=== PATIENT | female | born 1990 | race Native Hawaiian/Other Pacific Islander ===

== ENCOUNTER 2017-06-15 21:45 | Inpatient (IN) | payer BC ==
[2017-06-15] MEDS ORDERED: Sodium Chloride 0.9% 1,000 ML IV STA (22:13)
[2017-06-15] MEDS ORDERED: Iohexol 240 (50 ml) PO STA (22:13)
--- NOTE | 2017-06-15 22:46 | ED PDOC ---
HPI: Abdomen Time Seen by Provider: 06/15/17 21:55 Chief Complaint (Nursing): Abdominal Pain Chief Complaint (Provider): Abdominal Pain History Per: Patient History/Exam Limitations: no limitations Onset/Duration Of Symptoms: Hrs (x24) Current Symptoms Are (Timing): Still Present Additional Complaint(s): Gordon Higginbotham is a 27 year old [place] female with a history of ovarian cyst that required oophorectomy and tubectomy, as well appendectomy that presents to the ED with a chief complaint of sharp, intermittent epigastric abdominal pain that she has been experiencing for the past 24 hours. Patient denies any associated vomiting, diarrhea, urinary symptoms, or vaginal discharge. Past Medical History Reviewed: Historical Data, Nursing Documentation, Vital Signs Vital Signs: Last Vital Signs Temp 97.7 F 06/16/17 03:59 Pulse 79 06/16/17 03:59 Resp 19 06/16/17 03:59 BP 109/65 06/16/17 03:59 Pulse Ox 96 06/16/17 03:59 - Medical History Other PMH: Ovarian cyst - Surgical History Surgical History: Appendectomy Other surgeries: oophorectomy and tubectomy for ovarian cyst - Family History Family History: States: Unknown Family Hx - Home Medications Home Medications: Ambulatory Orders Medication Instructions Recorded No Known Home Med 06/16/17 - Allergies Allergies/Adverse Reactions: Allergies Allergy/AdvReac Type Severity Reaction Status Date / Time No Known Allergies Allergy Verified 06/15/17 21:48 Review of Systems Gastrointestinal: Positive for: Abdominal Pain Physical Exam - Reviewed Nursing Documentation Reviewed: Yes Vital Signs Reviewed: Yes - Physical Exam Appears: Positive for: Non-toxic, Uncomfortable Head Exam: Positive for: ATRAUMATIC, NORMOCEPHALIC Skin: Positive for: Normal Color, Warm Eye Exam: Positive for: EOMI, Normal appearance, PERRL Cardiovascular/Chest: Positive for: Regular Rate, Rhythm. Negative for: Murmur Respiratory: Positive for: Normal Breath Sounds. Negative for: Wheezing Gastrointestinal/Abdominal: Positive for: Tenderness (Right mid-abdominal tenderness to palpation). Negative for: Normal Exam Neurologic/Psych: Positive for: Alert, Oriented. Negative for: Motor/Sensory Deficits - Laboratory Results Result Diagrams: 06/15/17 23:15 06/16/17 00:10 - ECG O2 Sat by Pulse Oximetry: 99 (RA) Pulse Ox Interpretation: Normal Medical Decision Making Medical Decision Making: Impression: 27 year old female with epigastric and right sided abdominal pain Plan: * US Abdomen * US Transvaginal * CMP * CBC * PTT * PTT * Lipase * Iohexol 50 mL PO * NaCl 1000 mLs at 1000 mLs/hr * Zofran 4 mg IV * Morphine 4 mg IV * Reevaluation 06/15/2017 23:50 US Abdomen, Right Upper Quadrant FINDINGS: Liver: Unremarkable as visualized. No mass. No intrahepatic bile duct dilation. Gallbladder: Unremarkable as visualized. No gallstones. Common bile duct: No dilation. Pancreas: Unremarkable as visualized. Right kidney: Unremarkable as visualized. No stones. No solid mass. No hydronephrosis. IMPRESSION: No acute sonographic abnormality US Pelvis, Transvaginal FINDINGS: Uterus/cervix: Measured at 6.2 x 2.5 x 3.8 cm. Normal endometrial stripe thickness. Trace fluid in region of cervix. No myometrial mass. Right ovary: Unremarkable as visualized. No mass. Normal blood flow. Left ovary: Unremarkable as visualized. No mass. Normal blood flow. IMPRESSION: No acute sonographic abnormality. Scribe Attestation: Documented by Lala Rubi, acting as a scribe for Uri Castaneda MD. Provider Scribe Attestation: All medical record entries made by the Scribe were at my direction and personally dictated by me. I have reviewed the chart and agree that the record accurately reflects my personal performance of the history, physical exam, medical decision making, and the department course for this patient. I have also personally directed, reviewed, and agree with the discharge instructions and disposition. ED OBSERVATION - Progress Note Progress Note: 06/16/17 00:40 Patient placed on ED observation because of extensive time of work up. 06/16/17 02:00 No changes. Patient resting comfortably. Vitals stable. 06/16/17 02:30 CT Abdomen with IV contrast FINDINGS: Lower thorax: The visualized portions of the lung bases are normal. ABDOMEN: Liver: There are no focal liver lesions present. Gallbladder and bile ducts: The gallbladder is normal. There is no evidence of biliary ductal dilation. No calcified stones. Pancreas: The pancreas is normal. No ductal dilation. Spleen: The spleen is normal. Adrenals: The adrenal glands are normal. Kidneys and ureters: The kidneys are normal. No hydronephrosis. Stomach and bowel: The small bowel is filled with fecal contents and dilated up to 3.4 cm with abrupt collapse in the mid pelvis consistent with high-grade small bowel obstruction. The stomach is normal. The colon is normal. No mucosal thickening. Appendix: No findings to suggest acute appendicitis. PELVIS: Bladder: The bladder is normal. Reproductive: The uterus is normal. ABDOMEN and PELVIS: Intraperitoneal space: There is a small amount of free pelvic fluid present. There is a trace amount of LEFT upper quadrant ascites. No free air. Bones/joints: No acute fracture. No dislocation. Soft tissues: Normal. Vasculature: Normal. No abdominal aortic aneurysm. Lymph nodes: Normal. No enlarged lymph nodes. IMPRESSION: The small bowel is filled with fecal contents and dilated up to 3.4 cm with abrupt collapse in the mid pelvis consistent with high-grade small bowel obstruction. 06/16/17 02:54 Patient with small bowel obstruction. Spoke with Dr. Josue surgical scheduler regarding patient. She will speak with Dr. Saha about admitting patient. 06/16/17 03:30 No changes. Patient resting comfortably. Vitals stable. Scribe Attestation: Documented by Marcello Tijerina acting as a scribe for Uri Castaneda MD. Scribmichael Attestation: All medical record entries made by the Scribe were at my direction and personally dictated by me. I have reviewed the chart and agree that the record accurately reflects my personal performance of the history, physical exam, medical decision making, and the department course for this patient. I have also personally directed, reviewed, and agree with the discharge instructions and disposition. Disposition - Clinical Impression Clinical Impression: Small bowel obstruction - Patient ED Disposition Is Patient to be Admitted: Yes Discussed With DrGen: Melanie Negron Counseled Patient/Family Regarding: Studies Performed, Diagnosis - Disposition Disposition Time: 02:40 Condition: FAIR - Pt Status Changed To: Hospital Disposition Of: Inpatient - Admit Certification Admit to Inpatient:: After my assessment, the patient will require hospitalization for at least two midnights. This is because of the severity of symptoms shown, intensity of services needed, and/or the medical risk in this patient being treated as an outpatient.
[2017-06-15 23:05] LABS: RBC URINE 2 /hpf (0-3); URINE BACTERIA RARE (<OCC); URINE BILIRUBIN NEGATIVE (NEGATIVE); URINE BLOOD NEGATIVE (NEGATIVE); URINE COLOR YELLOW (YELLOW); URINE GLUCOSE (UA) NEG (Normal); URINE KETONE NEGATIVE (NEGATIVE); URINE LEUKOCYTE ESTERASE SMALL Leu/uL (Negative); URINE PROTEIN NEGATIVE (NEGATIVE); URINE UROBILINOGEN 0.2-1.0 mg/dL (0.2-1.0); WBC URINE 8 /hpf (0-5)
[2017-06-15] MEDS ORDERED: Iohexol 240 (50 ml) ONE (23:30)
[2017-06-15 23:52] LABS: BASO # 0.1 K/uL (0.0-0.2); BASO % 0.4 % (0.0-2.0); EOS # 0.1 K/uL (0.0-0.7); HEMATOCRIT 43.8 % (34.0-47.0); LYMPH # 1.2 K/uL (1.0-4.3); LYMPH % 9.9 % (20.0-40.0); MEAN CELL VOLUME 91.4 fl (81.0-99.0); MEAN CORPUSCULAR HEMOGLOBIN 29.8 pg (27.0-31.0); MEAN CORPUSCULAR HGB CONC 32.7 g/dL (33.0-37.0); MEAN PLATELET VOLUME 8.1 fl (7.2-11.7); MONO # 0.5 K/uL (0.0-0.8); MONO % 4.4 % (0.0-10.0); NEUT # 10.4 K/uL (1.8-7.0); NEUT % 84.3 % (50.0-75.0); PLATELET COUNT 252 K/uL (130-400); RED CELL DISTRIBUTION WIDTH 13.9 % (11.5-14.5); WHITE BLOOD COUNT 12.4 K/uL (4.8-10.8)
[2017-06-16 00:05] LABS: PARTIAL THROMBOPLASTIN TIME 29.7 Seconds (25.6-37.1)
[2017-06-16 01:09] LABS: ALB/GLOB RATIO 1.4 (1.0-2.1); ALKALINE PHOSPHATASE 45 U/L (38-126); ALT/SGPT 24 U/L (9-52); AST/SGOT 20 U/L (14-36); BILIRUBIN,TOTAL 0.7 mg/dl (0.2-1.3); BLOOD UREA NITROGEN 10 mg/dl (7-17); CALCIUM 9.5 mg/dL (8.4-10.2); CARBON DIOXIDE 23 mmol/L (22-30); CHLORIDE 103 mmol/L (98-107); GFR AFRICAN-AMERICAN > 60; GLUCOSE,RANDOM 115 mg/dL (65-105); LIPASE 73 U/L (23-300); POTASSIUM 4.4 MMOL/L (3.6-5.0); SODIUM 141 mmol/l (132-148); TOTAL PROTEIN 7.7 G/DL (6.3-8.2)
[2017-06-16 01:16] LABS: BASOPHIL 1 % (0-2); EOSINOPHIL 1 % (0-7); NEUTROPHIL 81 % (42-75); TOTAL CELLS COUNTED 100
[2017-06-16] MEDS ORDERED: Sodium Chloride 0.9% 50 ML IV ONE (01:20)
[2017-06-16] MEDS ORDERED: Iohexol 300 100 ML IJ ONE (01:20)
--- NOTE | 2017-06-16 04:31 | CP.PCM.HP ---
History of Present Illness - History of Present Illness History of Present Illness: General Surgery Dr. Saha 27 y/o F w/ PMHx of R ovarian cyst s/p open R salpingoophorectomy and appendectomy presents to the ED c/o abd pain x24hrs. Pt states discomfort began Monday evening w/ sensation of indigestion. Pt took Tums and went to bed. Sensation worsened throughout prompting pt to come to the ED. Pt admits pain worse in epigastric region. Pain is non-radiating and comes in waves. Pt has never before had this pain. Pt reports NBNB vomiting x1 in the ED. Pt reports continued nausea. Pt states last BM was Monday. Pt unsure if recent diarrhea or constipation. Pt denies F/C, SOB, CP, melena, or hematochezia. PMHx: see above Meds: reviewed in chart NKDA PSHx: open R salpingoophorectomy, appendectomy 2013 SHx: occasional EtOH use. denies tobacco, drug use FHx: HTN Present on Admission - Present on Admission Any Indicators Present on Admission: No Review of Systems - Review of Systems All systems: reviewed and no additional remarkable complaints except (see HPI) Past Patient History - Past Social History Smoking Status: Never Smoked - MUSCULOSKELETAL/RHEUMATOLOGICAL Hx Falls: No - GENITOURINARY/GYNECOLOGICAL Other/Comment: Ovarian cysts - PSYCHIATRIC Hx Substance Use: No - SURGICAL HISTORY Hx Appendectomy: Yes - ANESTHESIA Hx Anesthesia: Yes Hx Anesthesia Reactions: No Meds Allergies/Adverse Reactions: Allergies Allergy/AdvReac Type Severity Reaction Status Date / Time No Known Allergies Allergy Verified 06/15/17 21:48 Physical Exam - Constitutional Appears: Non-toxic, No Acute Distress - Head Exam Head Exam: NORMAL INSPECTION - Eye Exam Eye Exam: Normal appearance - ENT Exam ENT Exam: Mucous Membranes Moist - Respiratory Exam Respiratory Exam: NORMAL BREATHING PATTERN. absent: Accessory Muscle Use, Respiratory Distress - Cardiovascular Exam Cardiovascular Exam: REGULAR RHYTHM. absent: Bradycardia, Tachycardia - GI/Abdominal Exam GI & Abdominal Exam: Soft, Tenderness (minimal epigastric TTP). absent: Distended, Guarding, Rebound, Rigid Additional comments: well-healed midline scar present - Extremities Exam Extremities exam: Positive for: normal inspection - Neurological Exam Neurological exam: Alert, Oriented x3 - Psychiatric Exam Psychiatric exam: Normal Affect - Skin Skin Exam: Dry, Intact, Normal Color, Warm Results - Vital Signs Recent Vital Signs: Last Vital Signs Temp 97.7 F 06/16/17 03:59 Pulse 79 06/16/17 03:59 Resp 19 06/16/17 03:59 BP 109/65 06/16/17 03:59 Pulse Ox 96 06/16/17 03:59 - Labs Result Diagrams: 06/15/17 23:15 06/16/17 00:10 Labs: Laboratory Results - last 24 hr 06/15/17 06/15/17 06/15/17 22:07 23:15 23:15 WBC 12.4 H RBC 4.79 Hgb 14.3 Hct 43.8 MCV 91.4 MCH 29.8 MCHC 32.7 L RDW 13.9 Plt Count 252 MPV 8.1 Neut % (Auto) 84.3 H Lymph % (Auto) 9.9 L [place] % (Auto) 4.4 Eos % (Auto) 1.0 Baso % (Auto) 0.4 Neut # 10.4 H Lymph # 1.2 [place] # 0.5 Eos # 0.1 Baso # 0.1 Neutrophils % (Manual) 81 H Lymphocytes % (Manual) 12 L Monocytes % (Manual) 5 Eosinophils % (Manual) 1 Basophils % (Manual) 1 Platelet Estimate Normal PT 11.3 INR 1.1 APTT 29.7 Sodium Potassium Chloride Carbon Dioxide Anion Gap BUN Creatinine Est GFR ( Amer) Est GFR (Non-Af Amer) Random Glucose Calcium Total Bilirubin AST ALT Alkaline Phosphatase Total Protein Albumin Globulin Albumin/Globulin Ratio Lipase Urine Color Yellow Urine Clarity Cloudy Urine pH 7.0 Ur Specific [place] 1.013 Urine Protein Negative Urine Glucose (UA) Neg Urine Ketones Negative Urine Blood Negative Urine Nitrate Negative Urine Bilirubin Negative Urine Urobilinogen 0.2-1.0 Ur Leukocyte Esterase Small Urine RBC (Auto) 2 Urine Microscopic WBC 8 H Ur Squamous Epith Cells 6 H Urine Bacteria Rare Urine Yeast (Budding) Many H 06/16/17 00:10 WBC RBC Hgb Hct MCV MCH MCHC RDW Plt Count MPV Neut % (Auto) Lymph % (Auto) [place] % (Auto) Eos % (Auto) Baso % (Auto) Neut # Lymph # [place] # Eos # Baso # Neutrophils % (Manual) Lymphocytes % (Manual) Monocytes % (Manual) Eosinophils % (Manual) Basophils % (Manual) Platelet Estimate PT INR APTT Sodium 141 Potassium 4.4 Chloride 103 Carbon Dioxide 23 Anion Gap 20 BUN 10 Creatinine 0.5 L Est GFR ( Amer) > 60 Est GFR (Non-Af Amer) > 60 Random Glucose 115 H Calcium 9.5 Total Bilirubin 0.7 AST 20 ALT 24 Alkaline Phosphatase 45 Total Protein 7.7 Albumin 4.4 Globulin 3.3 Albumin/Globulin Ratio 1.4 Lipase 73 Urine Color Urine Clarity Urine pH Ur Specific [place] Urine Protein Urine Glucose (UA) Urine Ketones Urine Blood Urine Nitrate Urine Bilirubin Urine Urobilinogen Ur Leukocyte Esterase Urine RBC (Auto) Urine Microscopic WBC Ur Squamous Epith Cells Urine Bacteria Urine Yeast (Budding) - Imaging and Cardiology CT scan - abdomen Status: Image reviewed by me, Report reviewed by me US - abdomen Status: Report reviewed by me Assessment & Plan - Assessment and Plan (Free Text) Assessment: 27 y/o F w/ abd pain likely 2/2 mechanical SBO - NPO, IVF - pain management - anti-emetic - fecalization of colon and small bowel on imaging - Dulcolax suppository - NGT if vomiting develops - f/u Procalcitonin Will discuss w/ Dr. Yifan Negron DO PGY2
[2017-06-16] MEDS: Sodium Chloride 0.9% 1,000 ML IV SCH ×2 (04:59→18:59)
[2017-06-16 06:19] LABS: BASO % 0.5 % (0.0-2.0); EOS % 0.3 % (0.0-4.0); HEMATOCRIT 38.7 % (34.0-47.0); LYMPH # 0.7 K/uL (1.0-4.3); LYMPH % 8.1 % (20.0-40.0); MEAN CELL VOLUME 91.4 fl (81.0-99.0); MEAN CORPUSCULAR HEMOGLOBIN 30.1 pg (27.0-31.0); MEAN CORPUSCULAR HGB CONC 32.9 g/dL (33.0-37.0); MEAN PLATELET VOLUME 7.9 fl (7.2-11.7); MONO # 0.3 K/uL (0.0-0.8); MONO % 3.9 % (0.0-10.0); NEUT # 7.2 K/uL (1.8-7.0); NEUT % 87.2 % (50.0-75.0); RED CELL DISTRIBUTION WIDTH 13.4 % (11.5-14.5); WHITE BLOOD COUNT 8.3 K/uL (4.8-10.8)
[2017-06-16 06:33] LABS: ALB/GLOB RATIO 1.3 (1.0-2.1); ALKALINE PHOSPHATASE 39 U/L (38-126); ALT/SGPT 21 U/L (9-52); AST/SGOT 18 U/L (14-36); BILIRUBIN,TOTAL 0.7 mg/dl (0.2-1.3); BLOOD UREA NITROGEN 8 mg/dl (7-17); CALCIUM 9.3 mg/dL (8.4-10.2); CARBON DIOXIDE 25 mmol/L (22-30); CHLORIDE 105 mmol/L (98-107); GFR AFRICAN-AMERICAN > 60; GLUCOSE,RANDOM 118 mg/dL (65-105); SODIUM 143 mmol/l (132-148); TOTAL PROTEIN 7.2 G/DL (6.3-8.2)
--- NOTE | 2017-06-16 10:12 | CT ---
PROCEDURE: CT Abdomen and Pelvis with contrast HISTORY: abd pain COMPARISON: Non abdomen and pelvic ultrasound examinations both dated 06/15/2017. TECHNIQUE: Contrast dose: Omnipaque 300, 90 cc. Radiation dose: Total exam DLP = 329.94 mGy-cm. This CT exam was performed using one or more of the following dose reduction techniques: Automated exposure control, adjustment of the mA and/or kV according to patient size, and/or use of iterative reconstruction technique. FINDINGS: LOWER THORAX: Unremarkable. LIVER: Diminished attenuation is appreciated throughout liver compatible with diffuse fatty infiltration. No discrete mass seen throughout the liver or gross intrahepatic biliary dilatation. GALLBLADDER AND BILE DUCTS: Unremarkable. PANCREAS: Unremarkable. No gross lesion or ductal dilatation. SPLEEN: Unremarkable. ADRENALS: Unremarkable. No mass. KIDNEYS AND URETERS: Unremarkable. No hydronephrosis. No solid mass. VASCULATURE: Unremarkable. No aortic aneurysm. BOWEL: Dilated small bowel is appreciated throughout the abdomen with collapsed distal small bowel segments appreciated. A loop of small bowel in the right lower quadrant measures up to 4.0 cm. Retained fecal material is seen in within much of the small bowel lumen and there is a sharp transition from dilated to collapsed small bowel in the lower abdomen just above the level of pelvis in images 46, 47 and 48 of series 2 which is felt to be the likely transition point, possibly an internal hernia. Further clinical correlation is advised and surgical consultation is recommended. Muscle large bowel is collapsed however moderate amount retained fecal material seen the ascending colon. There is no large-bowel obstruction appreciated. APPENDIX: No definite CT pattern suggest appendicitis at this time are the appendix is not identified. PERITONEUM: Limited mesenteric edema is appreciate the inferior abdomen predominantly. No free fluid. No free air. LYMPH NODES: Unremarkable. No enlarged lymph nodes. BLADDER: Unremarkable. REPRODUCTIVE: Unremarkable. BONES: No acute fracture. OTHER FINDINGS: None. IMPRESSION: Findings most compatible the high-grade distal small-bowel obstruction with the transition point appears to be at the midline posterior inferior abdomen. Please see discussion above. No free intrarenal gas abscess or ascites however mesenteric reaction seen the inferior abdomen. Diffuse fatty infiltration of liver. Concordant report from [facility], 06/15/2017.
--- NOTE | 2017-06-16 11:32 | RAD ---
HISTORY: SBO COMPARISON: Abdomen and pelvis CT examination 06/16/2017. FINDINGS: BOWEL: Oral contrast identified in the ascending colon indicating incomplete small bowel obstruction. Distended small bowel loops remain at the mid to inferior abdomen filled with retained stool and oral contrast material. No free intrarenal gas is grossly evident. BONES: Normal. OTHER FINDINGS: A distended urinary bladder suggested in the pelvis. IMPRESSION: Findings suggest partial distal small bowel obstruction with oral contrast not identified opacifying the ascending colon. No prominent free intrarenal gas. Clinical correlation and imaging follow-up are advised.
--- NOTE | 2017-06-16 13:18 | US ---
HISTORY: abd pain hx ov cyst COMPARISON: None available. TECHNIQUE: Transvaginal FINDINGS: UTERUS: Measures 6.2 x 2.5 x 3.8 cm. Normal in size and appearance. No fibroid or other mass lesion seen. ENDOMETRIUM: Measures 3 mm in diameter. Unremarkable. CERVIX: No cervical abnormality identified. RIGHT OVARY: Measures 0.6 x 1.2 x 1.4 cm. No solid mass. Normal flow. LEFT OVARY: Measures 1.4 x 2.2 x 3.4 cm. No solid mass. Normal flow. FREE FLUID: There is a small amount of ascites identified. OTHER FINDINGS: None. IMPRESSION: Unremarkable pelvic ultrasound. Trace ascites. Preliminary interpretation of this examination was reported by [facility] at 11:38 p.m. on 06/15/2017. There is concurrence of this report with the preliminary interpretation.
--- NOTE | 2017-06-16 13:24 | US ---
HISTORY: RUQ COMPARISON: None. TECHNIQUE: Sonographic evaluation of the right upper quadrant of the abdomen. FINDINGS: LIVER: Measures 15.0 cm in length. Normal echogenicity of the liver parenchyma. No mass. No intrahepatic bile duct dilatation. GALLBLADDER: Unremarkable. No gallstones. COMMON BILE DUCT: Measures 4 mm. No stones. No dilatation. PANCREAS: Unremarkable as visualized. No mass. No ductal dilatation. RIGHT KIDNEY: Measures cm in length. Normal echogenicity. No calculus, mass, or hydronephrosis. AORTA: No aneurysmal dilatation. IVC: Unremarkable. OTHER FINDINGS: None . IMPRESSION: Unremarkable examination. No evidence of cholelithiasis or cholecystitis. Preliminary interpretation of this examination was reported by [facility] at 11:39 p.m. on 06/15/2017. There is concurrence of this report with the preliminary interpretation.
[2017-06-16 16:22] VITALS: BP 95/53; PULSE 78; RESP 19; TEMP 98.3; O2SAT 95
[2017-06-16] MEDS ORDERED: Pneumococcal 23-Valent Vaccine IM ONE (17:24)
[2017-06-16] MEDS ORDERED: Influenza Vaccine 18yr & older 0.5 ML/45 MCG SYR IM ONE (17:24)
--- NOTE | 2017-06-16 21:21 | CP.PCM.DIS ---
Provider - Provider Date of Admission: 06/16/17 02:41 Attending physician: Tong Saha MD Hospital Course - Lab Results Lab Results: Most Recent Lab Values WBC 8.3 K/uL (4.8-10.8) 06/16/17 05:15 RBC 4.23 Mil/uL (3.80-5.20) 06/16/17 05:15 Hgb 12.7 g/dL (12.0-16.0) 06/16/17 05:15 Hct 38.7 % (34.0-47.0) 06/16/17 05:15 MCV 91.4 fl (81.0-99.0) 06/16/17 05:15 MCH 30.1 pg (27.0-31.0) 06/16/17 05:15 MCHC 32.9 g/dL (33.0-37.0) L 06/16/17 05:15 RDW 13.4 % (11.5-14.5) 06/16/17 05:15 Plt Count 214 K/uL (130-400) 06/16/17 05:15 MPV 7.9 fl (7.2-11.7) 06/16/17 05:15 Neut % (Auto) 87.2 % (50.0-75.0) H 06/16/17 05:15 Lymph % (Auto) 8.1 % (20.0-40.0) L 06/16/17 05:15 [place] % (Auto) 3.9 % (0.0-10.0) 06/16/17 05:15 Eos % (Auto) 0.3 % (0.0-4.0) 06/16/17 05:15 Baso % (Auto) 0.5 % (0.0-2.0) 06/16/17 05:15 Neut # 7.2 K/uL (1.8-7.0) H 06/16/17 05:15 Lymph # 0.7 K/uL (1.0-4.3) L 06/16/17 05:15 [place] # 0.3 K/uL (0.0-0.8) 06/16/17 05:15 Eos # 0.0 K/uL (0.0-0.7) 06/16/17 05:15 Baso # 0.0 K/uL (0.0-0.2) 06/16/17 05:15 Neutrophils % (Manual) 81 % (42-75) H 06/15/17 23:15 Lymphocytes % (Manual) 12 % (20-50) L 06/15/17 23:15 Monocytes % (Manual) 5 % (0-10) 06/15/17 23:15 Eosinophils % (Manual) 1 % (0-7) 06/15/17 23:15 Basophils % (Manual) 1 % (0-2) 06/15/17 23:15 Platelet Estimate Normal (NORMAL) 06/15/17 23:15 PT 11.3 Seconds (9.8-13.1) 06/15/17 23:15 INR 1.1 (0.9-1.2) 06/15/17 23:15 APTT 29.7 Seconds (25.6-37.1) 06/15/17 23:15 Sodium 143 mmol/l (132-148) 06/16/17 05:15 Potassium 4.0 MMOL/L (3.6-5.0) 06/16/17 05:15 Chloride 105 mmol/L (98-107) 06/16/17 05:15 Carbon Dioxide 25 mmol/L (22-30) 06/16/17 05:15 Anion Gap 17 (10-20) 06/16/17 05:15 BUN 8 mg/dl (7-17) 06/16/17 05:15 Creatinine 0.5 mg/dL (0.7-1.2) L 06/16/17 05:15 Est GFR ( Amer) > 60 06/16/17 05:15 Est GFR (Non-Af Amer) > 60 06/16/17 05:15 Random Glucose 118 mg/dL (65-105) H 06/16/17 05:15 Calcium 9.3 mg/dL (8.4-10.2) 06/16/17 05:15 Total Bilirubin 0.7 mg/dl (0.2-1.3) 06/16/17 05:15 AST 18 U/L (14-36) 06/16/17 05:15 ALT 21 U/L (9-52) 06/16/17 05:15 Alkaline Phosphatase 39 U/L (38-126) 06/16/17 05:15 Total Protein 7.2 G/DL (6.3-8.2) 06/16/17 05:15 Albumin 4.1 g/dL (3.5-5.0) 06/16/17 05:15 Globulin 3.1 gm/dL (2.2-3.9) 06/16/17 05:15 Albumin/Globulin Ratio 1.3 (1.0-2.1) 06/16/17 05:15 Lipase 73 U/L (23-300) 06/16/17 00:10 Procalcitonin 0.05 NG/ML (0.19-0.49) L 06/16/17 05:15 Urine Color Yellow (YELLOW) 06/15/17 22:07 Urine Clarity Cloudy (Clear) 06/15/17 22:07 Urine pH 7.0 (5.0-8.0) 06/15/17 22:07 Ur Specific [place] 1.013 (1.003-1.030) 06/15/17 22:07 Urine Protein Negative mg/dL (NEGATIVE) 06/15/17 22:07 Urine Glucose (UA) Neg mg/dL (Normal) 06/15/17 22:07 Urine Ketones Negative mg/dL (NEGATIVE) 06/15/17 22:07 Urine Blood Negative (NEGATIVE) 06/15/17 22:07 Urine Nitrate Negative (NEGATIVE) 06/15/17 22:07 Urine Bilirubin Negative (NEGATIVE) 06/15/17 22:07 Urine Urobilinogen 0.2-1.0 mg/dL (0.2-1.0) 06/15/17 22:07 Ur Leukocyte Esterase Small [place]/uL (Negative) 06/15/17 22:07 Urine RBC (Auto) 2 /hpf (0-3) 06/15/17 22:07 Urine Microscopic WBC 8 /hpf (0-5) H 06/15/17 22:07 Ur Squamous Epith Cells 6 /hpf (0-5) H 06/15/17 22:07 Urine Bacteria Rare (<OCC) 06/15/17 22:07 Urine Yeast (Budding) Many /hpf (NEGATIVE) H 06/15/17 22:07 Discharge Exam - Head Exam Head Exam: ATRAUMATIC, NORMOCEPHALIC Discharge Plan - Follow Up Plan Condition: FAIR Disposition: HOME/ ROUTINE Instructions: Constipation (DC), Acute Nausea and Vomiting (DC), Bowel Obstruction (DC) Additional Instructions: Can be discharged home. Eat slow smaller meals. can eat regular food. Stay well hydrated, drink plenty of fluids. Recommend eating diet rich in fiber. Can take over the counter ducolax if needed. If symptoms pain gets worse with increased nausea and vomiting go the the ER. Follow up with your primary care doctor within two weeks.
== END 2017-06-16 18:30 | disposition home or self-care (01) | DRG 390 ==
LOC: H.ER 21:45 → H.ERHOLD 06-16 02:41 → H.TEL 06-16 03:48
PROVIDERS: ADMIT Surgery; ATTEND Surgery
PROC: 3E0234Z Introduction of Serum, Toxoid and Vaccine into Muscle, Percutaneous Approach (ICD-10-PCS; principal; 2017-06-16)
DX: K56.69 Other intestinal obstruction (principal); I10 Essential (primary) hypertension; Z23 Encounter for immunization; Z90.49 Acquired absence of other specified parts of digestive tract

== ENCOUNTER 2017-11-05 17:41 | Observation (INO) | payer BC ==
[2017-11-05] MEDS ORDERED: Lactated Ringer's 1,000 ML IV STA (20:05)
[2017-11-05] MEDS ORDERED: Morphine 4 MG/ML VIAL IVP STA (20:23)
[2017-11-05] MEDS ORDERED: Sodium Chloride 0.9% 50 ML IV ONE (20:31)
[2017-11-05] MEDS ORDERED: Iohexol 300 100 ML IJ ONE (20:31)
[2017-11-05] MEDS ORDERED: Morphine 4 MG/ML VIAL ONE (20:50)
[2017-11-05 21:19] LABS: BASO % 0.3 % (0.0-2.0); EOS % 0.1 % (0.0-4.0); HEMOGLOBIN 14.1 g/dL (12.0-16.0); LYMPH # 0.5 K/uL (1.0-4.3); LYMPH % 4.8 % (20.0-40.0); MEAN CELL VOLUME 90.9 fl (81.0-99.0); MEAN CORPUSCULAR HEMOGLOBIN 29.7 pg (27.0-31.0); MEAN CORPUSCULAR HGB CONC 32.7 g/dL (33.0-37.0); MEAN PLATELET VOLUME 7.4 fl (7.2-11.7); MONO # 0.3 K/uL (0.0-0.8); MONO % 2.7 % (0.0-10.0); NEUT # 9.3 K/uL (1.8-7.0); NEUT % 92.1 % (50.0-75.0); PLATELET COUNT 256 K/uL (130-400); RBC 4.75 Mil/uL (3.80-5.20); RED CELL DISTRIBUTION WIDTH 13.5 % (11.5-14.5); WHITE BLOOD COUNT 10.1 K/uL (4.8-10.8)
[2017-11-05 21:35] LABS: ALB/GLOB RATIO 1.3 (1.0-2.1); ALBUMIN 4.6 g/dL (3.5-5.0); ALT/SGPT 24 U/L (9-52); AST/SGOT 21 U/L (14-36); BLOOD UREA NITROGEN 15 mg/dl (7-17); CALCIUM 9.6 mg/dL (8.4-10.2); GFR AFRICAN-AMERICAN > 60; GFR NON-AFRICAN AMERICAN > 60; LIPASE 71 U/L (23-300); MAGNESIUM 2.2 MG/DL (1.6-2.3)
[2017-11-05 21:51] LABS: INR 1.1 (0.9-1.2); PARTIAL THROMBOPLASTIN TIME 25.7 Seconds (25.6-37.1); PROTHROMBIN TIME 11.9 Seconds (9.8-13.1)
--- NOTE | 2017-11-05 22:03 | ED PDOC ---
HPI: Abdomen Time Seen by Provider: 11/05/17 19:22 Chief Complaint (Nursing): Abdominal Pain Chief Complaint (Provider): Abdominal Pain History Per: Patient History/Exam Limitations: no limitations Onset/Duration Of Symptoms: Days (x1), Worse Since Outside of [place] travel?: No Current Symptoms Are (Timing): Still Present Location Of Pain/Discomfort: Periumbilical Quality Of Discomfort: "Pain" Associated Symptoms: Chills, Vomiting, Loss Of Appetite. denies: Diarrhea Exacerbating Factors: None Alleviating Factors: None Additional Complaint(s): 27 year old female presenting with worsening periumbilical abdominal pain x1 day. The patient states that the abdominal pain is associated with multiple episodes of non bloody, non bilious vomit. She also notes an inability to tolerate food and fluids and also a loss of appetite and chills. 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 - Family History Family History: States: Unknown Family Hx - Social History Current smoker - smoking cessation education provided: No Ex-Smoker (has not smoked in the last 12 months): No Alcohol: None - Home Medications Home Medications: Ambulatory Orders Medication Instructions Recorded Norgestimate-Ethinyl Estradiol 11/06/17 [Mononessa 28 Tablet] Venlafaxine HCl [Venlafaxine HCl 75 mg PO DAILY 11/06/17 ER] - Allergies Allergies/Adverse Reactions: Allergies Allergy/AdvReac Type Severity Reaction Status Date / Time No Known Allergies Allergy Verified 06/15/17 21:48 Review of Systems ROS Statement: Except As Marked, All Systems Reviewed And Found Negative Gastrointestinal: Positive for: Vomiting, Abdominal Pain, Other (no black/ bloody stools). Negative for: Diarrhea Physical Exam - Physical Exam Appears: Positive for: Non-toxic, Uncomfortable, In Acute Distress (painful distress) Skin: Positive for: Normal Color, Warm, Dry. Negative for: Rash Eye Exam: Positive for: Normal appearance, EOMI, PERRL ENT: Positive for: Other (dry mucous membranes). Negative for: Nasal Congestion , Tonsillar Exudate Neck: Positive for: Normal, Painless ROM, Supple Cardiovascular/Chest: Positive for: Regular Rate, Rhythm. Negative for: Tachycardia Respiratory: Positive for: Normal Breath Sounds. Negative for: Rales, Rhonchi, Wheezing, Respiratory Distress Gastrointestinal/Abdominal: Positive for: Bowel Sounds, Soft, Tenderness (b/l upper quad and periumbilical tenderness.), Other (negative mcburneys point tender ). Negative for: Mass, Guarding, Rebound Back: Positive for: Normal Inspection. Negative for: L CVA Tenderness, R CVA Tenderness Extremity: Positive for: Normal ROM. Negative for: Tenderness, Deformity, Swelling Neurologic/Psych: Positive for: Alert, Oriented - Laboratory Results Result Diagrams: 11/06/17 07:45 11/05/17 21:15 - ECG O2 Sat by Pulse Oximetry: 98 (RA) Pulse Ox Interpretation: Normal Medical Decision Making Medical Decision Makin Initial Impression 27 year old female presenting with abdominal pain Differential: Obstruction, Enteritis, Appendicitis, Dehydration Initial Plan: * CT ABD&PELV * CMP * Lipase * Magnesium * Phosphorous * Upreg * Udip * CBC * Partial Thromboplastin * Prothrombin Time * Dextrose 1000ml IV 100 mls/hr * Lactated ringers 1000mls IV 1000mls/hr * Morphine 4mg IVP * Zofran 8mg IV * Blood Culture * Reevaluation Labs demonstrate no emergently significant abnormalities CT demonstrate SBO DW Dr Negron Surgery resident and Dr Angulo Hospitalist DAVIDSON pt findings and plan of care. Hospitalization for bowel rest, IVF, obs for resolution of obstruction v surgical intervention Documented by Cecilia Willams acting as a scribe for Judith Arvizu MD. All medical record entries made by the Scribe were at my direction and personally dictated by me. I have reviewed the chart and agree that the record accurately reflects my personal performance of the history, physical exam, medical decision making, and the department course for this patient. I have also personally directed, reviewed, and agree with the discharge instructions and disposition. Disposition - Clinical Impression Clinical Impression: Small bowel obstruction Counseled Patient/Family Regarding: Studies Performed, Diagnosis - Disposition Disposition Time: 00:00 Condition: FAIR - Pt Status Changed To: Hospital Disposition Of: Observation - POA Present On Arrival: None
--- NOTE | 2017-11-05 22:35 | CT ---
EXAM: CT Abdomen and Pelvis With Intravenous Contrast CLINICAL HISTORY: 27 years old, female; Pain; Abdominal pain; Generalized; Prior surgery; Surgery date: 6+ months; Surgery type: Appendectomy and rt ovarian jul 2013; Patient HX: Epigastric ruq luq pain. HX sbo; Additional info: Abd pain TECHNIQUE: Axial computed tomography images of the abdomen and pelvis with intravenous contrast. All CT scans at this facility use one or more dose reduction techniques, viz.: automated exposure control; ma/kV adjustment per patient size (including targeted exams where dose is matched to indication; i.e. head); or iterative reconstruction technique. Coronal and sagittal reformatted images were created and reviewed. CONTRAST: 98 mL of OMNIPAQUE administered intravenously. COMPARISON: CT - ABD PELVIS PO IV CONTRAST 2017-06-16 01:31 FINDINGS: Limitations: Motion artifact - mild. Lower thorax: No acute findings. ABDOMEN: Liver: Fatty infiltration. Gallbladder and bile ducts: No calcified stones. No ductal dilation. Pancreas: No ductal dilation. No mass. Spleen: No splenomegaly. Adrenals: No mass. Kidneys and ureters: No mass. Minimal pelvocaliectasis of LEFT kidney. Stomach and bowel: Moderately dilated loops of mid small bowel. Nondistended loops of distal small bowel. Mild stranding/fluid within associated small bowel mesentery. No definite mural thickening. Appendix: Appendectomy. PELVIS: Bladder: Unremarkable. Reproductive: Unremarkable as visualized. ABDOMEN and PELVIS: Intraperitoneal space: Trace free fluid within abdomen. Small free fluid within pelvis. No free air. Bones/joints: No acute fracture. Soft tissues: Unremarkable. Vasculature: Unremarkable. No aneurysm. Lymph nodes: No pathologically enlarged lymph nodes. IMPRESSION: 1. Findings compatible with small bowel obstruction. 2. Incidental/non-acute findings are described above.
[2017-11-05] MEDS: Dextrose 5%/Lactated Ringer's 1,000 ML IV SCH (23:24)
--- NOTE | 2017-11-06 00:08 | CP.PCM.HP ---
History of Present Illness - History of Present Illness History of Present Illness: PMD: Not on staff Chief Complaint: Abdominal duong The patient was seen and examined in the ED HPI: This is a 27 years old female with hx of Extensive abdominal surgery , including Right Oophorectomy, tubectomy and Appendectomy all at the same time time 10 years ago.She also was diagnosed with SBO 05/2017 with conservative treatment. She now comes with 1 day of Sharp, Periumbilical abdominal pain which was continuous, crampy, not relieved with Peptobismul and associated with vomiting. No diarrhea, coughing, Urinary frequency, dysuria, Diarrhea nor fever. PMH: SBO 06/04; Ovarian Cyst PSH: Right Oophorectomy; Right Tubectomy; Appendectomy SH: Never Smoked; No ETOH use; No illegal drug use FH: States: Unknown Family Hx Allergies: NKDA Medication: Denies Present on Admission - Present on Admission Any Indicators Present on Admission: No History of DVT/PE: No History of Uncontrolled Diabetes: No Urinary Catheter: No Decubitus Ulcer Present: No Review of Systems - Constitutional Constitutional: Anorexia, Chills. absent: Fatigue, Fever, Headache, Lethargy - EENT Eyes: absent: Diplopia, Floaters, Requires Corrective Lenses, Sees Flashes Ears: absent: Decreased Hearing, Ear Discharge, Ear Pain, Tinnitus Nose/Mouth/Throat: absent: Epistaxis, Nasal Congestion, Nasal Discharge, Sinus Pain, Sinus Pressure - Cardiovascular Cardiovascular: absent: Chest Pain, Dyspnea, Edema - Respiratory Respiratory: absent: Cough, Dyspnea, Wheezing - Gastrointestinal Gastrointestinal: Abdominal Pain, Nausea, Vomiting. absent: Constipation, Diarrhea - Musculoskeletal Musculoskeletal: absent: Abnormal Gait, Arthralgias, Muscle Weakness, Numbness - Integumentary Integumentary: absent: Pruritus, Rash, Skin Ulcer, Sores, Striae, Swelling - Neurological Neurological: absent: Confusion, Dizziness, Focal Weakness, Weakness - Psychiatric Psychiatric: absent: Anxiety, Depression, Panic Attacks - Endocrine Endocrine: absent: Palpitations, Polydipsia, Polyphagia, Polyuria - Hematologic/Lymphatic Hematologic: absent: Easy Bleeding, Easy Bruising Past Patient History - Past Medical History & Family History Past Medical History?: Yes - Past Social History Smoking Status: Never Smoked Chewing Tobacco Use: No Cigar Use: No Alcohol: None Drugs: Denies Home Situation {Lives}: With Family - CARDIAC Hx Cardiac Disorders: No - PULMONARY Hx Respiratory Disorders: No - NEUROLOGICAL Hx Neurological Disorder: No - HEENT Hx HEENT Problems: No - RENAL Hx Chronic Kidney Disease: No - ENDOCRINE/METABOLIC Hx Endocrine Disorders: No - HEMATOLOGICAL/ONCOLOGICAL Hx Blood Disorders: No - INTEGUMENTARY Hx Dermatological Problems: No - MUSCULOSKELETAL/RHEUMATOLOGICAL Hx Musculoskeletal Disorders: No Hx Falls: No - GASTROINTESTINAL Hx Gastrointestinal Disorders: No - GENITOURINARY/GYNECOLOGICAL Hx Genitourinary Disorders: No Other/Comment: Ovarian cysts - PSYCHIATRIC Hx Psychophysiologic Disorder: No Hx Substance Use: No - SURGICAL HISTORY Hx Appendectomy: Yes Other/Comment: Right Oophorectomy and tubectomy - ANESTHESIA Hx Anesthesia: Yes Hx Anesthesia Reactions: No Meds Allergies/Adverse Reactions: Allergies Allergy/AdvReac Type Severity Reaction Status Date / Time No Known Allergies Allergy Verified 06/15/17 21:48 Physical Exam - Constitutional Appears: No Acute Distress - Head Exam Head Exam: ATRAUMATIC, NORMAL INSPECTION, NORMOCEPHALIC - Eye Exam Eye Exam: EOMI, Normal appearance Pupil Exam: NORMAL ACCOMODATION, PERRL - ENT Exam ENT Exam: Mucous Membranes Moist, Normal Exam, Normal External Ear Exam - Neck Exam Neck exam: Positive for: Full Rom, Normal Inspection. Negative for: Lymphadenopathy, Tenderness - Respiratory Exam Respiratory Exam: Clear to Auscultation Bilateral. absent: Rales, Rhonchi, Wheezes - Cardiovascular Exam Cardiovascular Exam: REGULAR RHYTHM, RRR, +S1, +S2. absent: Gallop, JVD - GI/Abdominal Exam Additional comments: Flat, Soft decreased bowel sounds, Tender at the periumbilical region, no guarding, mild rebound tenderness. - Rectal Exam Rectal Exam: Deferred - Extremities Exam Extremities exam: Positive for: full ROM, normal inspection. Negative for: calf tenderness, joint swelling, pedal edema - Back Exam Back exam: NORMAL INSPECTION. absent: CVA tenderness (L), CVA tenderness (R) - Neurological Exam Neurological exam: Alert, CN II-XII Intact, Oriented x3, Reflexes Normal - Psychiatric Exam Psychiatric exam: Normal Affect, Normal Mood - Skin Skin Exam: Dry, Intact, Normal Color, Warm Results - Vital Signs Recent Vital Signs: Last Vital Signs Temp 98.2 F 11/05/17 18:08 Pulse 82 11/05/17 18:08 Resp 16 11/05/17 18:08 BP 126/70 11/05/17 18:08 Pulse Ox 98 11/05/17 22:13 - Labs Result Diagrams: 11/05/17 21:15 11/05/17 21:15 Labs: Laboratory Results - last 24 hr 11/05/17 11/05/17 11/05/17 21:15 21:15 21:15 WBC 10.1 RBC 4.75 Hgb 14.1 Hct 43.2 MCV 90.9 MCH 29.7 MCHC 32.7 L RDW 13.5 Plt Count 256 MPV 7.4 Neut % (Auto) 92.1 H Lymph % (Auto) 4.8 L [place] % (Auto) 2.7 Eos % (Auto) 0.1 Baso % (Auto) 0.3 Neut # (Auto) 9.3 H Lymph # (Auto) 0.5 L [place] # (Auto) 0.3 Eos # (Auto) 0.0 Baso # (Auto) 0.0 PT 11.9 INR 1.1 APTT 25.7 Sodium 142 Potassium 3.4 L Chloride 102 Carbon Dioxide 23 Anion Gap 20 BUN 15 Creatinine 0.6 L Est GFR ( Amer) > 60 Est GFR (Non-Af Amer) > 60 Random Glucose 138 H Calcium 9.6 Phosphorus 4.0 Magnesium 2.2 Total Bilirubin 0.8 AST 21 ALT 24 Alkaline Phosphatase 48 Total Protein 8.2 Albumin 4.6 Globulin 3.6 Albumin/Globulin Ratio 1.3 Lipase 71 - Imaging and Cardiology CT scan - abdomen Status: Report reviewed by me Additional comment: EXAM: CT Abdomen and Pelvis With Intravenous Contrast FINDINGS: Limitations: Motion artifact - mild. Lower thorax: No acute findings. ABDOMEN: Liver: Fatty infiltration. Gallbladder and bile ducts: No calcified stones. No ductal dilation. Pancreas: No ductal dilation. No mass. Spleen: No splenomegaly. Adrenals: No mass. Kidneys and ureters: No mass. Minimal pelvocaliectasis of LEFT kidney. Stomach and bowel: Moderately dilated loops of mid small bowel. Nondistended loops of distal small bowel. Mild stranding/fluid within associated small bowel mesentery. No definite mural thickening. Appendix: Appendectomy. PELVIS: Bladder: Unremarkable. Reproductive: Unremarkable as visualized. ABDOMEN and PELVIS: Intraperitoneal space: Trace free fluid within abdomen. Small free fluid within pelvis. No free air. Bones/joints: No acute fracture. Soft tissues: Unremarkable. Vasculature: Unremarkable. No aneurysm. Lymph nodes: No pathologically enlarged lymph nodes. IMPRESSION: 1. Findings compatible with small bowel obstruction. 2. Incidental/non-acute findings are described above Assessment & Plan - Assessment and Plan (Free Text) Assessment: #. SBO #. Hypokalemia #. Hyperglycemia Plan: 27 years old female with hx of Extensive abdominal surgery , including Right Oophorectomy, tubectomy and Appendectomy 10 years ago.She also was diagnosed with SBO 05/2017 with conservative treatment. She now comes with 1 day of Sharp , Periumbilical abdominal pain which was continuous, and crampy, no fever. #. SBO - Consult Dr De La Cruz Surgery - NPO - IV Fluids - Zofran for Vomiting -Pain management -Follow up repeated Obstructive #. Hypokalemia replete - Add KCL to IV fluid #. Hyperglycemia - follow HbA1c #. Stress ulcer prophylaxis with Pantoprazole #. DVT prophylaxis with SCD - Date & Time Date: 11/06/17 Time: 00:08
--- NOTE | 2017-11-06 00:21 | CP.PCM.CON ---
<Melanie Negron - Last Filed: 11/06/17 00:14> History of Present Illness - History of Present Illness History of Present Illness: General Surgery Dr. De La Cruz 27 y/o F w/ PMHx of R ovarian cyst s/p open R salpingoophorectomy and appendectomy presents to the ED c/o abd pain. Pt states pain began Monday evening as vague discomfort. Pt believed pain to be indigestion/gastritis and took some peptobismol, which relieved some of the discomfort. After eating dinner, pt reports worsening discomfort. Pt reports NBNB vomiting x3 after dinner w/ another 3 episodes throughout the day Monday. Pain is similar to pain on last admission in May. Pain is diffuse and comes in waves. Pain does not radiate. Nothing makes the pain better but PO intake makes the pain worse. Pt reports last BM was ~3am Monday morning and last flatus was ~5pm Monday. Pt denies F/C, D/C. PMHx: see above Meds: reviewed in chart NKDA PSHx: open R salpingoophorectomy w/ appendectomy 2013 SHx: occasional EtOH use. denies tobacco, drug use FHx: noncontributory Review of Systems - Review of Systems All systems: reviewed and no additional remarkable complaints except (see HPI) Past Patient History - Past Medical History & Family History Past Medical History?: Yes - Past Social History Alcohol: None - MUSCULOSKELETAL/RHEUMATOLOGICAL Hx Falls: No - GENITOURINARY/GYNECOLOGICAL Other/Comment: Ovarian cysts - PSYCHIATRIC Hx Substance Use: No - SURGICAL HISTORY Hx Appendectomy: Yes - ANESTHESIA Hx Anesthesia: Yes Hx Anesthesia Reactions: No Meds Allergies/Adverse Reactions: Allergies Allergy/AdvReac Type Severity Reaction Status Date / Time No Known Allergies Allergy Verified 06/15/17 21:48 - Medications Medications: Current Medications Dextrose/Lactated Ringer's (Dextrose 5%/Lactated Ringer's) 1,000 mls @ 100 mls/ hr IV .Q10H [facility] Last Admin: 11/05/17 23:24 Dose: 100 mls/hr Lactated Ringer's (Lactated Ringer's) 1,000 mls @ 125 mls/hr IV .Q8H [facility] Physical Exam - Constitutional Appears: Non-toxic, No Acute Distress - Head Exam Head Exam: NORMAL INSPECTION - Eye Exam Eye Exam: Normal appearance - ENT Exam ENT Exam: Mucous Membranes Moist - Respiratory Exam Respiratory Exam: NORMAL BREATHING PATTERN. absent: Accessory Muscle Use, Respiratory Distress - GI/Abdominal Exam GI & Abdominal Exam: Soft. absent: Distended, Guarding, Rebound, Rigid, Tenderness Additional comments: midline scar present - Extremities Exam Extremities exam: Positive for: normal inspection - Neurological Exam Neurological exam: Alert, Oriented x3 - Psychiatric Exam Psychiatric exam: Normal Affect, Normal Mood - Skin Skin Exam: Dry, Intact, Normal Color, Warm Results - Vital Signs Recent Vital Signs: Last Vital Signs Temp 98.2 F 11/05/17 18:08 Pulse 82 11/05/17 18:08 Resp 16 11/05/17 18:08 BP 126/70 11/05/17 18:08 Pulse Ox 98 11/05/17 22:13 - Labs Result Diagrams: 11/05/17 21:15 11/05/17 21:15 Labs: Laboratory Results - last 24 hr 11/05/17 11/05/17 11/05/17 21:15 21:15 21:15 WBC 10.1 RBC 4.75 Hgb 14.1 Hct 43.2 MCV 90.9 MCH 29.7 MCHC 32.7 L RDW 13.5 Plt Count 256 MPV 7.4 Neut % (Auto) 92.1 H Lymph % (Auto) 4.8 L [place] % (Auto) 2.7 Eos % (Auto) 0.1 Baso % (Auto) 0.3 Neut # (Auto) 9.3 H Lymph # (Auto) 0.5 L [place] # (Auto) 0.3 Eos # (Auto) 0.0 Baso # (Auto) 0.0 PT 11.9 INR 1.1 APTT 25.7 Sodium 142 Potassium 3.4 L Chloride 102 Carbon Dioxide 23 Anion Gap 20 BUN 15 Creatinine 0.6 L Est GFR ( Amer) > 60 Est GFR (Non-Af Amer) > 60 Random Glucose 138 H Calcium 9.6 Phosphorus 4.0 Magnesium 2.2 Total Bilirubin 0.8 AST 21 ALT 24 Alkaline Phosphatase 48 Total Protein 8.2 Albumin 4.6 Globulin 3.6 Albumin/Globulin Ratio 1.3 Lipase 71 - Imaging and Cardiology CT scan - abdomen Status: Image reviewed by me, Report reviewed by me Assessment & Plan - Assessment and Plan (Free Text) Assessment: 27 y/o F w/ abd pain likely 2/2 SBO - NPO, IVF - Zofran 4 Q4 - NGT if vomiting - serial abd exams - pain management, avoid narcotic use - encourage OOB to chair/Amb Will discuss w/ Dr. Dorothy Negron DO PGY2 <Keyshawn De La Cruz - Last Filed: 11/06/17 10:38> History of Present Illness - History of Present Illness History of Present Illness: Patient was seen and examined at the bedside. Agree with resident's note above. Meds - Medications Medications: Current Medications Hydromorphone HCl (Dilaudid) 0.5 mg IVP Q3 PRN PRN Reason: Pain, severe (8-10) Dextrose/Lactated Ringer's (Dextrose 5%/Lactated Ringer's) 1,000 mls @ 100 mls/ hr IV .Q10H [facility] Last Admin: 11/05/17 23:24 Dose: 100 mls/hr Lactated Ringer's (Lactated Ringer's) 1,000 mls @ 125 mls/hr IV .Q8H [facility] Last Admin: 11/06/17 08:00 Dose: 125 mls/hr Ketorolac Tromethamine (Toradol) 30 mg IVP Q6 PRN PRN Reason: Pain, moderate (4-7) Last Admin: 11/06/17 04:36 Dose: 30 mg Ondansetron HCl (Zofran Inj) 4 mg IVP Q4 PRN PRN Reason: Nausea/Vomiting Last Admin: 11/06/17 10:23 Dose: 4 mg Pantoprazole Sodium (Protonix Inj) 40 mg IVP DAILY [facility] Last Admin: 11/06/17 10:33 Dose: 40 mg Results - Vital Signs Recent Vital Signs: Last Vital Signs Temp 98.1 F 11/06/17 08:42 Pulse 63 11/06/17 08:42 Resp 18 11/06/17 08:42 BP 96/56 L 11/06/17 04:23 Pulse Ox 98 11/06/17 08:42 - Labs Result Diagrams: 11/06/17 07:45 11/05/17 21:15 Labs: Laboratory Results - last 24 hr 11/05/17 11/05/17 11/05/17 21:15 21:15 21:15 WBC 10.1 RBC 4.75 Hgb 14.1 Hct 43.2 MCV 90.9 MCH 29.7 MCHC 32.7 L RDW 13.5 Plt Count 256 MPV 7.4 Neut % (Auto) 92.1 H Lymph % (Auto) 4.8 L [place] % (Auto) 2.7 Eos % (Auto) 0.1 Baso % (Auto) 0.3 Neut # (Auto) 9.3 H Lymph # (Auto) 0.5 L [place] # (Auto) 0.3 Eos # (Auto) 0.0 Baso # (Auto) 0.0 Neutrophils % (Manual) 88 H Lymphocytes % (Manual) 5 L Reactive Lymphs % 1 H Monocytes % (Manual) 6 Platelet Estimate Normal PT 11.9 INR 1.1 APTT 25.7 Sodium 142 Potassium 3.4 L Chloride 102 Carbon Dioxide 23 Anion Gap 20 BUN 15 Creatinine 0.6 L Est GFR ( Amer) > 60 Est GFR (Non-Af Amer) > 60 Random Glucose 138 H Calcium 9.6 Phosphorus 4.0 Magnesium 2.2 Total Bilirubin 0.8 AST 21 ALT 24 Alkaline Phosphatase 48 Total Protein 8.2 Albumin 4.6 Globulin 3.6 Albumin/Globulin Ratio 1.3 Lipase 71 11/06/17 07:45 WBC 7.6 RBC 4.05 Hgb 12.4 Hct 36.7 MCV 90.5 MCH 30.7 MCHC 33.9 RDW 13.2 Plt Count 221 MPV 7.4 Neut % (Auto) 68.8 Lymph % (Auto) 18.4 L [place] % (Auto) 10.9 H Eos % (Auto) 1.2 Baso % (Auto) 0.7 Neut # (Auto) 5.3 Lymph # (Auto) 1.4 [place] # (Auto) 0.8 Eos # (Auto) 0.1 Baso # (Auto) 0.1 Neutrophils % (Manual) Lymphocytes % (Manual) Reactive Lymphs % Monocytes % (Manual) Platelet Estimate PT INR APTT Sodium Potassium Chloride Carbon Dioxide Anion Gap BUN Creatinine Est GFR ( Amer) Est GFR (Non-Af Amer) Random Glucose Calcium Phosphorus Magnesium Total Bilirubin AST ALT Alkaline Phosphatase Total Protein Albumin Globulin Albumin/Globulin Ratio Lipase Assessment & Plan - Assessment and Plan (Free Text) Plan: - Keep NPO - IV fluid hydration - pain control - Zofran prn - NG tube if vomits - repeat labs in am - Will follow
[2017-11-06] MEDS ORDERED: HYDROmorphone 0.5 mg/0.5 ml ISec IVP PRN (00:27)
[2017-11-06 02:17] LABS: LYMPHOCYTE 5 % (20-50); MONOCYTE 6 % (0-10); NEUTROPHIL 88 % (42-75); PLATELET ESTIMATE NORMAL (NORMAL); REACTIVE LYMPHOCYTES 1 % (0-0); TOTAL CELLS COUNTED 100
[2017-11-06] MEDS: Lactated Ringer's 1,000 ML IV SCH ×4 (07:30→21:03)
[2017-11-06 08:11] LABS: BASO # 0.1 K/uL (0.0-0.2); BASO % 0.7 % (0.0-2.0); EOS # 0.1 K/uL (0.0-0.7); EOS % 1.2 % (0.0-4.0); HEMOGLOBIN 12.4 g/dL (12.0-16.0); LYMPH # 1.4 K/uL (1.0-4.3); LYMPH % 18.4 % (20.0-40.0); MEAN CELL VOLUME 90.5 fl (81.0-99.0); MEAN CORPUSCULAR HEMOGLOBIN 30.7 pg (27.0-31.0); MEAN CORPUSCULAR HGB CONC 33.9 g/dL (33.0-37.0); MEAN PLATELET VOLUME 7.4 fl (7.2-11.7); MONO # 0.8 K/uL (0.0-0.8); MONO % 10.9 % (0.0-10.0); NEUT # 5.3 K/uL (1.8-7.0); NEUT % 68.8 % (50.0-75.0); RBC 4.05 Mil/uL (3.80-5.20); RED CELL DISTRIBUTION WIDTH 13.2 % (11.5-14.5); WHITE BLOOD COUNT 7.6 K/uL (4.8-10.8)
--- NOTE | 2017-11-06 10:32 | RAD ---
PROCEDURE: Radiographs of the chest and abdomen (obstructive series) HISTORY: follow up SBO COMPARISON: Abdomen pelvis CT examination with contrast 11/05/2017 TECHNIQUE: AP radiograph of the chest, with upright and supine radiographs of the abdomen. FINDINGS: CHEST: Lungs: Clear. Cardiovascular: Normal size heart. No pulmonary vascular congestion. Pleura: No pleural fluid. No pneumothorax. Other findings: None. ABDOMEN AND PELVIS: There is decompression of apparent small bowel dilatation seen in the prior abdomen and pelvis CT examination noted above. There is no free intraperitoneal gas. Limited residual gas seen remaining within a few left-sided small-bowel loops. Retained fecal material remains moderate the right hemicolon and mild at the distal large bowel. No suspicious intra-abdominal calcifications. Residual re- excreted iodinated contrast is noted within the urinary bladder. IMPRESSION: There is a nonobstructive bowel gas pattern with limited residual gas seen within left-sided small-bowel loops. No free intraperitoneal gas. No definite acute cardiopulmonary disease appreciable.
--- NOTE | 2017-11-06 11:45 | CP.PCM.PN ---
Objective - Vital Signs/Intake and Output Vital Signs (last 24 hours): Temp Pulse Resp BP Pulse Ox 98.1 F 63 18 96/56 L 98 11/06/17 08:42 11/06/17 08:42 11/06/17 08:42 11/06/17 04:23 11/06/17 08:42 - Medications Medications: Current Medications Hydromorphone HCl (Dilaudid) 0.5 mg IVP Q3 PRN PRN Reason: Pain, severe (8-10) Dextrose/Lactated Ringer's (Dextrose 5%/Lactated Ringer's) 1,000 mls @ 100 mls/ hr IV .Q10H [facility] Last Admin: 11/05/17 23:24 Dose: 100 mls/hr Lactated Ringer's (Lactated Ringer's) 1,000 mls @ 125 mls/hr IV .Q8H [facility] Last Admin: 11/06/17 08:00 Dose: 125 mls/hr Ketorolac Tromethamine (Toradol) 30 mg IVP Q6 PRN PRN Reason: Pain, moderate (4-7) Last Admin: 11/06/17 04:36 Dose: 30 mg Ondansetron HCl (Zofran Inj) 4 mg IVP Q4 PRN PRN Reason: Nausea/Vomiting Last Admin: 11/06/17 10:23 Dose: 4 mg Pantoprazole Sodium (Protonix Inj) 40 mg IVP DAILY [facility] Last Admin: 11/06/17 10:33 Dose: 40 mg - Labs Labs: 11/06/17 07:45 11/05/17 21:15 PT 11.9 Seconds (9.8-13.1) 11/05/17 21:15 INR 1.1 (0.9-1.2) 11/05/17 21:15 APTT 25.7 Seconds (25.6-37.1) 11/05/17 21:15
[2017-11-06] MEDS: Dextrose 5%/Lactated Ringer's 1,000 ML IV SCH (17:34)
[2017-11-07] MEDS: Dextrose 5%/Lactated Ringer's 1,000 ML IV SCH (02:15)
[2017-11-07 06:43] LABS: HEMOGLOBIN 11.5 g/dL (12.0-16.0); MEAN CELL VOLUME 92.5 fl (81.0-99.0); MEAN CORPUSCULAR HEMOGLOBIN 29.9 pg (27.0-31.0); MEAN CORPUSCULAR HGB CONC 32.3 g/dL (33.0-37.0); RBC 3.85 Mil/uL (3.80-5.20); RED CELL DISTRIBUTION WIDTH 13.3 % (11.5-14.5)
[2017-11-07] MEDS: Lactated Ringer's 1,000 ML IV SCH ×2 (06:53→08:01)
[2017-11-07 07:03] LABS: BLOOD UREA NITROGEN 8 mg/dl (7-17); CALCIUM 8.5 mg/dL (8.4-10.2); GFR AFRICAN-AMERICAN > 60; GFR NON-AFRICAN AMERICAN > 60
--- NOTE | 2017-11-07 08:04 | CP.PCM.PN ---
<JamilMelanie - Last Filed: 11/07/17 08:01> Subjective - Date & Time of Evaluation Date of Evaluation: 11/07/17 Time of Evaluation: 07:40 - Subjective Subjective: General Surgery Dr. De La Cruz Pt S&E @bedside. NAEO. Pt denies abd pain, N/V. (-)BM (+)Flatus. tolerating CLD. Objective - Vital Signs/Intake and Output Vital Signs (last 24 hours): Temp Pulse Resp BP Pulse Ox 98.7 F 74 19 97/59 L 96 11/07/17 00:00 11/07/17 00:00 11/07/17 00:00 11/07/17 00:00 11/07/17 00:00 - Medications Medications: Current Medications Hydromorphone HCl (Dilaudid) 0.5 mg IVP Q3 PRN PRN Reason: Pain, severe (8-10) Dextrose/Lactated Ringer's (Dextrose 5%/Lactated Ringer's) 1,000 mls @ 100 mls/ hr IV .Q10H [facility] Last Admin: 11/07/17 02:15 Dose: Not Given Lactated Ringer's (Lactated Ringer's) 1,000 mls @ 125 mls/hr IV .Q8H [facility] Last Admin: 11/07/17 06:53 Dose: 125 mls/hr Ketorolac Tromethamine (Toradol) 30 mg IVP Q6 PRN PRN Reason: Pain, moderate (4-7) Last Admin: 11/06/17 04:36 Dose: 30 mg Ondansetron HCl (Zofran Inj) 4 mg IVP Q4 PRN PRN Reason: Nausea/Vomiting Last Admin: 11/06/17 10:23 Dose: 4 mg Pantoprazole Sodium (Protonix Inj) 40 mg IVP DAILY [facility] Last Admin: 11/06/17 10:33 Dose: 40 mg - Labs Labs: 11/07/17 05:50 11/07/17 05:50 PT 11.9 Seconds (9.8-13.1) 11/05/17 21:15 INR 1.1 (0.9-1.2) 11/05/17 21:15 APTT 25.7 Seconds (25.6-37.1) 11/05/17 21:15 - Constitutional Appears: Non-toxic, No Acute Distress - Head Exam Head Exam: NORMAL INSPECTION - Eye Exam Eye Exam: Normal appearance - ENT Exam ENT Exam: Mucous Membranes Moist - Respiratory Exam Respiratory Exam: NORMAL BREATHING PATTERN. absent: Accessory Muscle Use, Respiratory Distress - GI/Abdominal Exam GI & Abdominal Exam: Distended (minimal), Soft. absent: Firm, Tenderness, Rebound Additional comments: midline scar present - Extremities Exam Extremities Exam: Normal Inspection - Neurological Exam Neurological Exam: Alert, Awake, Oriented x3 - Psychiatric Exam Psychiatric exam: Normal Affect, Normal Mood - Skin Skin Exam: Dry, Intact, Normal Color, Warm Assessment and Plan - Assessment and Plan (Free Text) Assessment: 27 y/o F w/ improved SBO - monitor bowel fxn - serial abd exams - cont CLD w/ possible advancement pending attending exam - cont conservative management Pt discussed w/ Dr. Dorothy Negron DO PGY2 <Keyshawn De La Cruz - Last Filed: 11/07/17 11:03> Subjective - Date & Time of Evaluation Time of Evaluation: 10:15 - Subjective Subjective: Patient was seen and examined at the bedside. Agree with resident's note above Objective - Vital Signs/Intake and Output Vital Signs (last 24 hours): Temp Pulse Resp BP Pulse Ox 98.2 F 71 20 95/57 L 97 11/07/17 08:51 11/07/17 08:51 11/07/17 08:51 11/07/17 08:51 11/07/17 08:51 - Medications Medications: Current Medications Hydromorphone HCl (Dilaudid) 0.5 mg IVP Q3 PRN PRN Reason: Pain, severe (8-10) Dextrose/Lactated Ringer's (Dextrose 5%/Lactated Ringer's) 1,000 mls @ 100 mls/ hr IV .Q10H [facility] Last Admin: 11/07/17 02:15 Dose: Not Given Lactated Ringer's (Lactated Ringer's) 1,000 mls @ 125 mls/hr IV .Q8H [facility] Last Admin: 11/07/17 08:01 Dose: Not Given Ketorolac Tromethamine (Toradol) 30 mg IVP Q6 PRN PRN Reason: Pain, moderate (4-7) Last Admin: 11/06/17 04:36 Dose: 30 mg Ondansetron HCl (Zofran Inj) 4 mg IVP Q4 PRN PRN Reason: Nausea/Vomiting Last Admin: 11/06/17 10:23 Dose: 4 mg Pantoprazole Sodium (Protonix Inj) 40 mg IVP DAILY [facility] Last Admin: 11/07/17 10:02 Dose: 40 mg - Labs Labs: 11/07/17 05:50 11/07/17 05:50 PT 11.9 Seconds (9.8-13.1) 11/05/17 21:15 INR 1.1 (0.9-1.2) 11/05/17 21:15 APTT 25.7 Seconds (25.6-37.1) 11/05/17 21:15 Assessment and Plan - Assessment and Plan (Free Text) Plan: - Start regular diet - If tolerates diet patient is clear for discharge home from the general surgery stand point
[2017-11-07 08:52] VITALS: BP 95/57; PULSE 71; RESP 20; TEMP 98.2; O2SAT 97
--- NOTE | 2017-11-07 12:08 | CP.PCM.DIS ---
<Mata Bullock - Last Filed: 11/07/17 15:21> Provider - Provider Date of Admission: 11/06/17 00:02 Attending physician: Hao Angulo Consults: General Surgery- Dr. De La Cruz Time Spent in preparation of Discharge (in minutes): 20 Diagnosis - Discharge Diagnosis (1) Small bowel obstruction Status: Acute (2) Hypokalemia Status: Resolved (3) Hyperglycemia Status: Acute Comment: hyperglycemia secondary to IV fluids Hospital Course - Lab Results Lab Results: Micro Results 11/05/17 21:12 Blood-Venous Blood Culture - Preliminary NO GROWTH AFTER 24 HOURS Most Recent Lab Values WBC 5.0 K/uL (4.8-10.8) 11/07/17 05:50 RBC 3.85 Mil/uL (3.80-5.20) 11/07/17 05:50 Hgb 11.5 g/dL (12.0-16.0) L 11/07/17 05:50 Hct 35.7 % (34.0-47.0) 11/07/17 05:50 MCV 92.5 fl (81.0-99.0) D 11/07/17 05:50 MCH 29.9 pg (27.0-31.0) 11/07/17 05:50 MCHC 32.3 g/dL (33.0-37.0) L 11/07/17 05:50 RDW 13.3 % (11.5-14.5) 11/07/17 05:50 Plt Count 195 K/uL (130-400) 11/07/17 05:50 MPV 7.4 fl (7.2-11.7) 11/06/17 07:45 Neut % (Auto) 68.8 % (50.0-75.0) 11/06/17 07:45 Lymph % (Auto) 18.4 % (20.0-40.0) L 11/06/17 07:45 [place] % (Auto) 10.9 % (0.0-10.0) H 11/06/17 07:45 Eos % (Auto) 1.2 % (0.0-4.0) 11/06/17 07:45 Baso % (Auto) 0.7 % (0.0-2.0) 11/06/17 07:45 Neut # (Auto) 5.3 K/uL (1.8-7.0) 11/06/17 07:45 Lymph # (Auto) 1.4 K/uL (1.0-4.3) 11/06/17 07:45 [place] # (Auto) 0.8 K/uL (0.0-0.8) 11/06/17 07:45 Eos # (Auto) 0.1 K/uL (0.0-0.7) 11/06/17 07:45 Baso # (Auto) 0.1 K/uL (0.0-0.2) 11/06/17 07:45 Neutrophils % (Manual) 88 % (42-75) H 11/05/17 21:15 Lymphocytes % (Manual) 5 % (20-50) L 11/05/17 21:15 Reactive Lymphs % 1 % (0-0) H 11/05/17 21:15 Monocytes % (Manual) 6 % (0-10) 11/05/17 21:15 Platelet Estimate Normal (NORMAL) 11/05/17 21:15 PT 11.9 Seconds (9.8-13.1) 11/05/17 21:15 INR 1.1 (0.9-1.2) 11/05/17 21:15 APTT 25.7 Seconds (25.6-37.1) 11/05/17 21:15 Sodium 142 mmol/l (132-148) 11/07/17 05:50 Potassium 3.7 MMOL/L (3.6-5.0) 11/07/17 05:50 Chloride 106 mmol/L (98-107) 11/07/17 05:50 Carbon Dioxide 26 mmol/L (22-30) 11/07/17 05:50 Anion Gap 14 (10-20) 11/07/17 05:50 BUN 8 mg/dl (7-17) 11/07/17 05:50 Creatinine 0.5 mg/dl (0.7-1.2) L 11/07/17 05:50 Est GFR ( Amer) > 60 11/07/17 05:50 Est GFR (Non-Af Amer) > 60 11/07/17 05:50 Random Glucose 82 mg/dL (65-105) 11/07/17 05:50 Calcium 8.5 mg/dL (8.4-10.2) 11/07/17 05:50 Phosphorus 4.0 mg/dl (2.5-4.5) 11/05/17 21:15 Magnesium 2.2 MG/DL (1.6-2.3) 11/05/17 21:15 Total Bilirubin 0.8 mg/dl (0.2-1.3) 11/05/17 21:15 AST 21 U/L (14-36) 11/05/17 21:15 ALT 24 U/L (9-52) 11/05/17 21:15 Alkaline Phosphatase 48 U/L (38-126) 11/05/17 21:15 Total Protein 8.2 G/DL (6.3-8.2) 11/05/17 21:15 Albumin 4.6 g/dL (3.5-5.0) 11/05/17 21:15 Globulin 3.6 gm/dL (2.2-3.9) 11/05/17 21:15 Albumin/Globulin Ratio 1.3 (1.0-2.1) 11/05/17 21:15 Lipase 71 U/L (23-300) 11/05/17 21:15 - Hospital Course Hospital Course: 27 y.o female with PMH of ovarian cyst and small bowel obstruction with PSH of oopherectomy, tubectomy, and appendectomy presented to ED for 1 day sharp, periumbical abdominal pain with associated vomiting on 11/06/17. CT Abdomen and Pelvis with IV contrast showed small bowel obstruction. General surgery Dr. De La Cruz was consulted and patient kept NPO, given Zofran PRN with series of CT Abdomen taken. Followup CT scan showed non obstructive pattern. Patient was continued to encourage ambulation. Also during hospital stay, patient was hypokalemia and given KCl to IV fluids, and hypokalemia resolved. During hospital stay patient was able to produce multiple flatus and produce 2 bowel movements. Patient's pain diminished. Patient's diet advanced to soft and able to tolerate diet without issues. Patient hemodynamically stable, in NAD, and decision made to discharge patient home. Patient to follow up with PMD, to continue monitor hyperglycemia. Discharge Exam - Head Exam Head Exam: NORMAL INSPECTION - Eye Exam Eye Exam: EOMI, Normal appearance, PERRL Pupil Exam: NORMAL ACCOMODATION, PERRL - ENT Exam ENT Exam: Mucous Membranes Moist - Neck Exam Neck exam: Full Rom, Normal Inspection - Respiratory Exam Respiratory Exam: NORMAL BREATHING PATTERN, UNREMARKABLE. absent: Rales, Rhonchi, Wheezes, Respiratory Distress, Stridor - Cardiovascular Exam Cardiovascular Exam: REGULAR RHYTHM, +S1, +S2 - GI/Abdominal Exam Additional comments: Bowel sounds noted No pain or tenderness with palpation to the abdomen Completely healed surgical scar noted to midline abdominal - Extremities Exam Extremities exam: normal inspection - Back Exam Back exam: absent: CVA tenderness (L), CVA tenderness (R) - Neurological Exam Neurological exam: Alert, Oriented x3 - Psychiatric Exam Psychiatric exam: Normal Affect, Normal Mood - Skin Skin Exam: Dry, Intact, Normal Color, Warm Discharge Plan - Follow Up Plan Condition: FAIR Disposition: HOME/ ROUTINE Instructions: Small Bowel Obstruction (DC) Additional Instructions: follow up with your primary MD 7-10 days Referrals: Keyshawn De La Cruz MD [Staff Provider] - <Zainab Hale - Last Filed: 11/07/17 15:48> Provider - Provider Date of Admission: 11/06/17 00:02 Attending physician: [facility] - Lab Results Lab Results: Micro Results 11/05/17 21:12 Blood-Venous Blood Culture - Preliminary NO GROWTH AFTER 24 HOURS Most Recent Lab Values WBC 5.0 K/uL (4.8-10.8) 11/07/17 05:50 RBC 3.85 Mil/uL (3.80-5.20) 11/07/17 05:50 Hgb 11.5 g/dL (12.0-16.0) L 11/07/17 05:50 Hct 35.7 % (34.0-47.0) 11/07/17 05:50 MCV 92.5 fl (81.0-99.0) D 11/07/17 05:50 MCH 29.9 pg (27.0-31.0) 11/07/17 05:50 MCHC 32.3 g/dL (33.0-37.0) L 11/07/17 05:50 RDW 13.3 % (11.5-14.5) 11/07/17 05:50 Plt Count 195 K/uL (130-400) 11/07/17 05:50 MPV 7.4 fl (7.2-11.7) 11/06/17 07:45 Neut % (Auto) 68.8 % (50.0-75.0) 11/06/17 07:45 Lymph % (Auto) 18.4 % (20.0-40.0) L 11/06/17 07:45 [place] % (Auto) 10.9 % (0.0-10.0) H 11/06/17 07:45 Eos % (Auto) 1.2 % (0.0-4.0) 11/06/17 07:45 Baso % (Auto) 0.7 % (0.0-2.0) 11/06/17 07:45 Neut # (Auto) 5.3 K/uL (1.8-7.0) 11/06/17 07:45 Lymph # (Auto) 1.4 K/uL (1.0-4.3) 11/06/17 07:45 [place] # (Auto) 0.8 K/uL (0.0-0.8) 11/06/17 07:45 Eos # (Auto) 0.1 K/uL (0.0-0.7) 11/06/17 07:45 Baso # (Auto) 0.1 K/uL (0.0-0.2) 11/06/17 07:45 Neutrophils % (Manual) 88 % (42-75) H 11/05/17 21:15 Lymphocytes % (Manual) 5 % (20-50) L 11/05/17 21:15 Reactive Lymphs % 1 % (0-0) H 11/05/17 21:15 Monocytes % (Manual) 6 % (0-10) 11/05/17 21:15 Platelet Estimate Normal (NORMAL) 11/05/17 21:15 PT 11.9 Seconds (9.8-13.1) 11/05/17 21:15 INR 1.1 (0.9-1.2) 11/05/17 21:15 APTT 25.7 Seconds (25.6-37.1) 11/05/17 21:15 Sodium 142 mmol/l (132-148) 11/07/17 05:50 Potassium 3.7 MMOL/L (3.6-5.0) 11/07/17 05:50 Chloride 106 mmol/L (98-107) 11/07/17 05:50 Carbon Dioxide 26 mmol/L (22-30) 11/07/17 05:50 Anion Gap 14 (10-20) 11/07/17 05:50 BUN 8 mg/dl (7-17) 11/07/17 05:50 Creatinine 0.5 mg/dl (0.7-1.2) L 11/07/17 05:50 Est GFR ( Amer) > 60 11/07/17 05:50 Est GFR (Non-Af Amer) > 60 11/07/17 05:50 Random Glucose 82 mg/dL (65-105) 11/07/17 05:50 Calcium 8.5 mg/dL (8.4-10.2) 11/07/17 05:50 Phosphorus 4.0 mg/dl (2.5-4.5) 11/05/17 21:15 Magnesium 2.2 MG/DL (1.6-2.3) 11/05/17 21:15 Total Bilirubin 0.8 mg/dl (0.2-1.3) 11/05/17 21:15 AST 21 U/L (14-36) 11/05/17 21:15 ALT 24 U/L (9-52) 11/05/17 21:15 Alkaline Phosphatase 48 U/L (38-126) 11/05/17 21:15 Total Protein 8.2 G/DL (6.3-8.2) 11/05/17 21:15 Albumin 4.6 g/dL (3.5-5.0) 11/05/17 21:15 Globulin 3.6 gm/dL (2.2-3.9) 11/05/17 21:15 Albumin/Globulin Ratio 1.3 (1.0-2.1) 11/05/17 21:15 Lipase 71 U/L (23-300) 11/05/17 21:15 Attending/Attestation - Attestation I have personally seen and examined this patient.: Yes I have fully participated in the care of the patient.: Yes I have reviewed all pertinent clinical information, including history, physical exam and plan: Yes
== END 2017-11-07 14:04 | disposition home or self-care (01) ==
LOC: H.ER 17:41 → H.ERHOLD 11-06 00:02 → H.MEDSURG1 11-06 04:15
PROVIDERS: ADMIT Internal Medicine; ATTEND Internal Medicine
DX: K56.609 Unspecified intestinal obstruction, unspecified as to partial versus complete obstruction (principal); E87.6 Hypokalemia; K29.70 Gastritis, unspecified, without bleeding; Z90.49 Acquired absence of other specified parts of digestive tract; Z90.721 Acquired absence of ovaries, unilateral; K30 Functional dyspepsia; R73.9 Hyperglycemia, unspecified
CPT/HCPCS: 36415; 74022; 74177; 80048; 80053; 81025; 83690; 83735; 84100; 85025; 85027; 85610; 85730; 87040; 96374; 99283; C9113; G0378; J1885; J2270; J2405; J7120; Q9967